=== PATIENT | female | born 1940 | race Asian ===

== ENCOUNTER 2018-12-10 21:44 | Emergency (ER) | payer OTHER ==
[~2018-12-10] VITALS: Ht 157.5 cm; Wt 63.5 kg
[2018-12-10 22:30] VITALS: Ht 157.5 cm; Wt 63.5 kg
[2018-12-11 00:29] VITALS: BP 120/65
== END 2018-12-11 00:29 | disposition home or self-care (01) ==
LOC: ED 21:44
DX: J02.9 Acute pharyngitis, unspecified (principal); J40 Bronchitis, not specified as acute or chronic; I10 Essential (primary) hypertension; E11.9 Type 2 diabetes mellitus without complications; K21.9 Gastro-esophageal reflux disease without esophagitis; M81.0 Age-related osteoporosis without current pathological fracture; Z88.0 Allergy status to penicillin; Z88.8 Allergy status to other drugs, medicaments and biological substances
CPT/HCPCS: 82962; 87804

== ENCOUNTER 2020-11-12 18:29 | Emergency (ER) | payer OTHER ==
[~2020-11-12] VITALS: Ht 157.5 cm; Wt 63.0 kg
[2020-11-12 18:48] VITALS: BP 147/69; Ht 157.5 cm; Wt 63.0 kg
== END 2020-11-12 19:47 | disposition home or self-care (01) ==
LOC: ED 18:29
DX: T50.B95A Adverse effect of other viral vaccines, initial encounter (principal); I10 Essential (primary) hypertension; E11.9 Type 2 diabetes mellitus without complications; K21.9 Gastro-esophageal reflux disease without esophagitis; Z98.890 Other specified postprocedural states; Z88.2 Allergy status to sulfonamides; Z88.0 Allergy status to penicillin; Y92.89 Other specified places as the place of occurrence of the external cause